=== PATIENT | male | born 1965 | race Two or more races ===

== ENCOUNTER 2021-11-25 10:14 | Emergency (ER) | payer MEDICAID, OTHER, SELFPAY ==
[2021-11-25 10:25] VITALS: BP 130/80; BP 134/79; PULSE 65; PULSE 88; RESP 16; TEMP 36.6; O2SAT 99; BMI 35.6
--- NOTE | 2021-11-25 10:28 | ED.WOUNDLAC ---
HPI - Wound/Laceration General Chief Complaint: Wound/Laceration Stated Complaint: rectal injury Time Seen by Provider: 11/25/21 10:24 Source: patient Mode of arrival: ambulatory Limitations: no limitations History of Present Illness HPI narrative: 56-year-old male with history of diabetes, high blood pressure, high cholesterol here with reports of laceration to the rectal area. Patient tells me he was in the shower this morning and he slipped striking his rectal area on the faucet. Patient had a tetanus this year. He is not on any anticoagulation Related Data Previous Rx's Medication Instructions Recorded amoxicillin 875 mg-potassium 1 tab PO BID #14 tabs 11/25/21 clavulanate 125 mg tablet docusate sodium 100 mg capsule 100 mg PO BID #60 caps 11/25/21 (Colace) oxycodone 5 mg tablet 5 mg PO Q8H PRN pain #8 tabs 11/25/21 Allergies Allergy/AdvReac Type Severity Reaction Status Date / Time No Known Allergies Allergy Unverified 01/08/20 18:08 [No Known Allergies*] Review of Systems Review of Systems: Yes all other systems are reviewed and are negative Constitutional: Constitutional: Reports no additional constitutional complaints, Denies body ache(s), Denies chills, Denies fever(s), Denies headache(s) and Denies weakness Eyes: Eyes: Reports no additional eye complaints and Denies change in vision ENT: Reports system reviewed and no additional complaints, except as documented, Denies dizziness, Denies headache(s), Denies nasal congestion, Denies nasal discharge and Denies neck pain Cardiovascular: Cardiovascular: Reports no additional cardiovascular complaints, Denies chest pain, Denies leg edema and Denies dyspnea Respiratory: Respiratory: Reports no additional respiratory complaints, Denies cough and Denies dyspnea Gastrointestinal: Gastrointestinal: Reports no additional gastrointestinal complaints, Denies abdominal pain, Denies diarrhea, Denies nausea and Denies vomiting Genitourinary: Genitourinary: Denies urinary incontinence Musculoskeletal: Musculoskeletal: Reports no additional musculoskeletal complaints, Denies back pain, Denies arthralgias, Denies joint swelling, Denies neck pain, Denies numbness and Denies tingling Integumentary/Breasts: Skin/Breast: Reports system reviewed and no additional complaints, except as docu and Denies rash Comments: +laceration Neurologic: Reports system reviewed and no additional complaints, except as documented, Denies Abnormal speech present, Denies dizziness, Denies headache(s), Denies numbness, Denies tingling and Denies weakness PMFSH Past Medical History Attestation statement: The following information was validated with the patient. Source: old records reviewed and nursing notes reviewed Social History Social History Alcohol intake: never Patient Tobacco Use Status: Never used Tobacco Advance Directives: No Advance Directives Information Provided: Yes Physical Exam Vital Signs: Vital Signs: Last Vital Signs Temp 97.9 F 11/25/21 10:25 Pulse 88 11/25/21 10:25 Resp 16 11/25/21 10:25 BP 134/79 11/25/21 10:25 Pulse Ox 99 11/25/21 10:25 O2 Del Method 11/25/21 10:25 BMI result Body Mass Index 35.6 Const: General: cooperative, healthy appearing, comfortable and no acute distress Orientation/consciousness: patient oriented x3 Limitations: no limitations HEENT: Head: Yes normal to inspection Ears: hearing grossly normal bilaterally General nose exam: Normal external nose present Face and sinus: Yes normal facial exam Mouth: Normal oral and palatal mucosa present Throat: Yes posterior oropharynx normal Eyes: General: appearance normal, both eyes and all related structures Pupils: Equal, round and reactive pupils present Neck: Neck: Yes normal visual inspection Chest: Chest palpation & inspection: normal inspection of the chest Resp: Effort & Inspection: normal respiratory effort Auscultation: clear to auscultation bilaterally Cardio: Rate: regular rate Rhythm: regular rhythm Peripheral pulses: Peripheral pulses 2+ throughout GI: Other: Inspection: Yes normal to inspection Palpation (GI): Soft to palpation and nontender Auscultation: normal bowel sounds Back/Spine/Pelvis: Thoracic/Lumbar Spine: thoracic and lumbar spine normal to inspection Skin: General skin exam: no rashes or lesions noted Neuro: General: patient oriented x3, no focal motor deficits and normal sensation to monofilament Cranial nerves: Yes Equal, round and reactive pupils present Cognition (Neuro): normal cognition Speech: No Abnormal speech present Gait exam (Neuro): Normal gait present Motor exam (neuro): 5/5 motor strength present throughout Extrem: General: Yes normal to inspection Course Course Course Narrative: See procedure note by Dr. Ventura. Patient tolerated well. He will be discharged home with a course of Augmentin prophylactically and analgesia as well as a stool softener. He will follow up next week in the office of Dr. Ventura for suture removal. Reviewed worrisome signs and symptoms of when to return to the emergency department. Comfortable discharge home. Consultations Consultation #1: Dr. Ventura saw the patient the bedside. He will perform laceration repair at the bedside. MDM - Wound/Laceration MDM Narrative Medical decision making narrative: 56-year-old male with a laceration to the perianal area after a fall in the shower. Patient will need General surgery consultation, labs, analgesia/antibiotic. Differential Diagnosis Differential diagnosis: Likely laceration Medical Records Attestation: I reviewed the patient's medical records. Lab Data Attestation: I reviewed the patient's lab results. Result diagrams: 11/25/21 10:50 11/25/21 10:50 Labs: Lab Results 11/25/21 11/25/21 11/25/21 Range/Units 10:38 10:50 10:50 WBC 8.7 (4.8-10.8) X10*3/uL RBC 4.80 (4.60-5.80) X10*6/uL Hgb 12.8 L (14.0-18.0) g/dl Hct 40.0 L (42.0-52.0) % MCV 83.3 (80.0-98.0) fL MCH 26.7 L (27.0-33.0) pg MCHC 32.0 (31.0-36.0) g/dl RDW 13.2 (11.0-16.0) % Plt Count 242 (160-400) X10*3/uL MPV 10.4 (9.4-12.4) fL Immature Gran % (Auto) 0.3 (0.0-0.4) % Neut % (Auto) 70.3 (45-73) % Lymph % (Auto) 20.0 (20-40) % Mcculloch % (Auto) 6.5 (2-11) % Eos % (Auto) 2.4 (0-4) % Baso % (Auto) 0.5 (0-2) % Lymph # (Auto) 1.7 (1.2-4.9) X10*3/uL Mcculloch # (Auto) 0.6 (0.1-1.2) X10*3/uL Eos # (Auto) 0.2 (0.0-0.4) X10*3/uL Baso # (Auto) 0.0 (0.0-0.2) X10*3/uL Abs Immat Gran (auto) 0.03 (0.00-0.03) X10*3/uL Absolute Neuts (auto) 6.1 (2.0-8.3) x10*3/uL Absolute Nucleated RBC 0.000 (0.0-0.012) X10*3/uL Nucleated RBC % (auto) 0.0 (0.0-0.2) /100WBC PT 11.7 (10.0-13.1) SEC INR 1.0 (0.9-1.1) APTT 29.3 (26.0-36.4) SEC Sodium (135-145) mmol/L Potassium (3.3-5.1) mmol/L Chloride (96-108) mmol/L Carbon Dioxide (22-29) mmol/L Anion Gap (12-20) BUN (9-16) mg/dL Creatinine (0.5-1.4) mg/dL Estim Creat Clear Calc Estimated GFR Random Glucose (60-115) mg/dL Calcium (8.4-10.2) mg/dL Total Bilirubin (0.0-1.0) mg/dL Direct Bilirubin (0.0-0.5) mg/dL AST (5-37) U/L ALT (0-40) U/L Alkaline Phosphatase (39-117) U/L Total Protein (6.5-8.0) g/dL Albumin (3.5-5.0) g/dL COVID-19 (LEW) Negative (Negative) COVID-19 Clin Com See Note 11/25/21 Range/Units 10:50 WBC (4.8-10.8) X10*3/uL RBC (4.60-5.80) X10*6/uL Hgb (14.0-18.0) g/dl Hct (42.0-52.0) % MCV (80.0-98.0) fL MCH (27.0-33.0) pg MCHC (31.0-36.0) g/dl RDW (11.0-16.0) % Plt Count (160-400) X10*3/uL MPV (9.4-12.4) fL Immature Gran % (Auto) (0.0-0.4) % Neut % (Auto) (45-73) % Lymph % (Auto) (20-40) % Mcculloch % (Auto) (2-11) % Eos % (Auto) (0-4) % Baso % (Auto) (0-2) % Lymph # (Auto) (1.2-4.9) X10*3/uL Mcculloch # (Auto) (0.1-1.2) X10*3/uL Eos # (Auto) (0.0-0.4) X10*3/uL Baso # (Auto) (0.0-0.2) X10*3/uL Abs Immat Gran (auto) (0.00-0.03) X10*3/uL Absolute Neuts (auto) (2.0-8.3) x10*3/uL Absolute Nucleated RBC (0.0-0.012) X10*3/uL Nucleated RBC % (auto) (0.0-0.2) /100WBC PT (10.0-13.1) SEC INR (0.9-1.1) APTT (26.0-36.4) SEC Sodium 141 (135-145) mmol/L Potassium 4.5 (3.3-5.1) mmol/L Chloride 106 (96-108) mmol/L Carbon Dioxide 27 (22-29) mmol/L Anion Gap 13 (12-20) BUN 18 H (9-16) mg/dL Creatinine 0.83 (0.5-1.4) mg/dL Estim Creat Clear Calc 112.3 Estimated GFR > 60 Random Glucose 112 (60-115) mg/dL Calcium 8.8 (8.4-10.2) mg/dL Total Bilirubin 0.4 (0.0-1.0) mg/dL Direct Bilirubin 0.2 (0.0-0.5) mg/dL AST 19 (5-37) U/L ALT 27 (0-40) U/L Alkaline Phosphatase 46 (39-117) U/L Total Protein 6.5 (6.5-8.0) g/dL Albumin 4.3 (3.5-5.0) g/dL COVID-19 (LEW) (Negative) COVID-19 Clin Com Discharge Plan Discharge Clinical Impression: Laceration Patient Disposition: Home, Self-Care Instructions: Laceration (ED) Additional Instructions: Keep the area clean, wash off after having bowel movement Follow-up with Dr Ventura in office next week Prescriptions: New amoxicillin-pot clavulanate 875-125 mg tablet 1 tab PO BID Qty: 14 0RF docusate sodium [Colace] 100 mg capsule 100 mg PO BID Qty: 60 0RF oxycodone 5 mg tablet 5 mg PO Q8H PRN (Reason: pain) Qty: 8 0RF Rx Instructions: Partial Fill upon patient request. Referrals: Robbie Ventura MD [Physician] - Interventions: ED Discharge Assessment Last Done: 11/25/21 12:26 Discharge Date/Time: 11/25/21 12:27
[2021-11-25 10:57] LABS: MANUAL DIFF FLAG NO
[2021-11-25 10:58] LABS: Basophils Percent Auto 0.5 % (0-2); Eosinophils Absolute Auto 0.2 X10*3/uL (0.0-0.4); Eosinophils Percent Auto 2.4 % (0-4); Hemoglobin 12.8 g/dl (14.0-18.0); Imm Gran Abs Auto 0.03 X10*3/uL (0.00-0.03); Imm Gran Pct Auto 0.3 % (0.0-0.4); Lymphocytes Absolute Auto 1.7 X10*3/uL (1.2-4.9); Mean Corpuscular Hemoglobin 26.7 pg (27.0-33.0); Mean Corpuscular Volume 83.3 fL (80.0-98.0); Mean Platelet Volume 10.4 fL (9.4-12.4); Monocytes Absolute Auto 0.6 X10*3/uL (0.1-1.2); Monocytes Percent Auto 6.5 % (2-11); Neutrophils Absolute Auto 6.1 x10*3/uL (2.0-8.3); Neutrophils Percent Auto 70.3 % (45-73); Platelet Count 242 X10*3/uL (160-400); Red Cell Distribution Width 13.2 % (11.0-16.0); White Blood Count 8.7 X10*3/uL (4.8-10.8)
[2021-11-25 11:03] LABS: Prothrombin Time 11.7 SEC (10.0-13.1)
[2021-11-25 11:05] LABS: Partial Thromboplastin Time 29.3 SEC (26.0-36.4)
[2021-11-25] MEDS: ondansetron HCL 4 MG/2 ML VIAL IVPUSH (11:11)
[2021-11-25] MEDS: Lactated Ringers 1,000 ML 999 ML IV (11:11)
[2021-11-25] MEDS: Morphine Sulfate 4 MG/ML CARTRIDGE IVPUSH (11:11)
[2021-11-25] MEDS: Lidocaine HCl 2% PF/Epi 1:200 20 ML VIAL INFILTRATI (11:12)
[2021-11-25 11:14] LABS: COVID-19 Test Negative (Negative); IDNOW Serial# 16C4AD1C
[2021-11-25 11:17] LABS: Alanine Aminotransferase 27 U/L (0-40); Albumin Level 4.3 g/dL (3.5-5.0); Alkaline Phosphatase 46 U/L (39-117); Anion Gap 13 (12-20); Aspartate Amino Transferase 19 U/L (5-37); Bilirubin Direct 0.2 mg/dL (0.0-0.5); Bilirubin Total 0.4 mg/dL (0.0-1.0); Blood Urea Nitrogen 18 mg/dL (9-16); Calcium 8.8 mg/dL (8.4-10.2); Carbon Dioxide 27 mmol/L (22-29); Chloride 106 mmol/L (96-108); Creatinine Clr Calc Pharmacy 112.3; Estimated Glomerular Filt Rate > 60; Glucose Random 112 mg/dL (60-115); Potassium 4.5 mmol/L (3.3-5.1); Sodium 141 mmol/L (135-145); Total Protein 6.5 g/dL (6.5-8.0)
--- NOTE | 2021-11-25 12:19 | P.OP_ITS ---
Operative Note Operative Note Date of Service: 11/25/21 Narrative: Preoperative diagnosis: Perianal laceration Postoperative diagnosis: Same Procedure: Repair of perianal laceration Surgeon: Robbie Ventura MD Ceramics Instructor: none Anesthesia: Local lidocaine 1% with epinephrine Indications for procedure: 56-year-old male patient status post fall in the shower this morning resulting in a large laceration of the perianal skin. Operative findings: Laceration measuring approximately 10 cm in length identified with a stellate appearance. Intact anal sphincter is noted. Specimen: None Estimated blood loss: None Complications: None Procedure details: Patient was placed in a prone position. The site of surgery was confirmed by the patient. After assuring informed consent the skin was prepped with Betadine and draped in a sterile fashion. Local anesthesia consist ing of 1% lidocaine with epinephrine was then infiltrated surrounding the laceration. The wounds were further cleansed using Betadine. Wounds were then loosely reapproximated using interrupted 3-0 nylon sutures. Sterile dressings were then applied. The patient tolerated the procedure well. He was discharged to home in stable condition.
--- NOTE | 2021-11-25 12:19 | PM.CNGS ---
History of Present Illness Consult details Consult date: 11/25/21 Requesting physician: Shaniqua Fernando Narrative: 56-year-old male patient presenting to the emergency department after slipping in the shower resulting in a laceration to the perirectal skin after striking the faucet. He was found to have a large laceration but denies significant pain or bleeding. His past history is significant for diabetes, hypertension, hypercholesterolemia. He denies associated injuries. Surgical consultation is requested for repair of this complex laceration. Review of Systems Review of Systems: Yes all other systems are reviewed and are negative Integumentary/Breasts: Skin/Breast: Reports as per [facility] Social History Social History Alcohol intake: never Patient Tobacco Use Status: Never used Tobacco Advance Directives: No Advance Directives Information Provided: Yes Meds Allergies Allergy/AdvReac Type Severity Reaction Status Date / Time No Known Allergies Allergy Unverified 01/08/20 18:08 [No Known Allergies*] Physical Exam Vital Signs: Vital Signs: Last Vital Signs Temp 97.9 F 11/25/21 10:25 Pulse 88 11/25/21 10:25 Resp 16 11/25/21 10:25 BP 134/79 11/25/21 10:25 Pulse Ox 99 11/25/21 10:25 O2 Del Method 11/25/21 10:25 BMI result Body Mass Index 35.6 Const: General: comfortable and no acute distress Nutritional Appearance: well nourished Orientation/consciousness: patient oriented x3 Limitations: no limitations HEENT: Head: Yes normocephalic and Yes atraumatic Ears: hearing grossly normal bilaterally Resp: Effort & Inspection: normal respiratory effort, no audible wheezes, no cough and no respiratory distress Auscultation: clear to auscultation bilaterally Cardio: Rate: regular rate Rhythm: regular rhythm GI: Other: Rectal examination reveals intact anal sphincter with normal sphincter function. A large laceration is noted extending to the right lateral wall extending into the subcutaneous tissue. Anal derm is intact. Palpation (GI): Soft to palpation, nontender, no guarding and not rigid Skin: Other: Laceration as noted above Neuro: General: patient oriented x3 Extrem: General: Yes no clubbing, cyanosis or edema Results Labs Result diagrams: 11/25/21 10:50 11/25/21 10:50 Labs: Abnormal lab results 11/25/21 11/25/21 Range/Units 10:50 10:50 Hgb 12.8 L (14.0-18.0) g/dl Hct 40.0 L (42.0-52.0) % MCH 26.7 L (27.0-33.0) pg BUN 18 H (9-16) mg/dL Short CBC 11/25/21 Range/Units 10:50 WBC 8.7 (4.8-10.8) X10*3/uL Hgb 12.8 L (14.0-18.0) g/dl Hct 40.0 L (42.0-52.0) % Plt Count 242 (160-400) X10*3/uL BMP 11/25/21 10:50 Sodium 141 Potassium 4.5 Chloride 106 Carbon Dioxide 27 BUN 18 H Creatinine 0.83 Calcium 8.8 Liver Function 11/25/21 Range/Units 10:50 Total Bilirubin 0.4 (0.0-1.0) mg/dL Direct Bilirubin 0.2 (0.0-0.5) mg/dL AST 19 (5-37) U/L ALT 27 (0-40) U/L Alkaline Phosphatase 46 (39-117) U/L Albumin 4.3 (3.5-5.0) g/dL All other labs normal. Assessment and Plan (1) Laceration: Status: Acute Plan 56-year-old male patient status post fall in shower resulting in a laceration to the perianal skin. A large complex laceration is identified but the sphincter but muscles appear to be intact. I recommended loosely closing the wounds to reapproximate skin edges. After discussion of the procedure, risks, and alternatives, he consents to the procedure. This will be performed at the bedside. Procedure was performed the patient tolerated the procedure well. I recommended warm soaks 3-4 times daily followed by dry sterile dressings to the wound. He may benefit from a stool softener as well. He should return to the office in approximately 1 week for wound examination and possible suture removal. He expressed understanding and agrees with the plan. Procedures Date of Service Date of Service: 11/25/21
== END 2021-11-25 12:27 | disposition home or self-care (01) ==
PROVIDERS: Emergency Provider Emergency Medicine; PCP Family Medicine
DX: S36.63XA Laceration of rectum, initial encounter (principal); W26.9XXA Contact with unspecified sharp object(s), initial encounter; Y93.E1 Activity, personal bathing and showering; Y92.002 Bathroom of unspecified non-institutional (private) residence as the place of occurrence of the external cause; Y99.9 Unspecified external cause status; Z20.822 Contact with and (suspected) exposure to COVID-19; Z79.899 Other long term (current) drug therapy
CPT/HCPCS: 12001; 80048; 80076; 85025; 85610; 85730; 87635; 96374; 96375; 99284; J0690; J2270; J2405

== ENCOUNTER → 2021-12-02 08:43 | Outpatient (BNVA) | payer MEDICAID, OTHER, SELFPAY | PROVIDERS: PCP Family Medicine; Referring Provider Family Medicine; Visit Provider Surgery | DX: S31.831D Laceration without foreign body of anus, subsequent encounter (principal) | CPT/HCPCS: 99212 ==

== ENCOUNTER → 2021-12-13 13:51 | Outpatient (BNVA) | payer MEDICAID, OTHER, SELFPAY | PROVIDERS: PCP Family Medicine; Visit Provider Surgery | DX: Z48.817 Encounter for surgical aftercare following surgery on the skin and subcutaneous tissue (principal); Z87.2 Personal history of diseases of the skin and subcutaneous tissue | CPT/HCPCS: 99212 ==

== ENCOUNTER 2022-06-19 09:20 | Outpatient (REF) | payer MEDICAID, OTHER, SELFPAY ==
--- NOTE | ~2022-06-19 | XR_ITS ---
EXAMINATION: XR SHOULDER, LEFT CLINICAL INFORMATION: Chronic left shoulder pain. COMPARISON: Chest radiograph 06/17/2015. TECHNIQUE: Left shoulder is imaged in 4 views. FINDINGS: No fracture or dislocation or destructive process. The glenohumeral appears normal. The acromioclavicular alignment is normal. There are no visible rotator cuff calcifications. XR/XR shoulder LT min 2V IMPRESSION: Normal left shoulder.
== END 2022-06-19 09:21 | disposition home or self-care (01) ==
LOC: HO.XRAY 09:20
PROVIDERS: PCP Family Medicine; Visit Provider Family Medicine
DX: M25.512 Pain in left shoulder (principal)
CPT/HCPCS: 73030

== ENCOUNTER 2022-10-12 08:54 | Outpatient (REF) | payer OTHER, SELFPAY ==
--- NOTE | 2022-10-12 08:55 | EMG_ITS ---
FINDINGS: Bilateral median and ulnar motor and sensory studies were performed. Bilateral radial sensory studies were performed. Paraspinal muscles were tested with a needle. IMPRESSION: 1. [id number] bilateral median neuropathy across carpal tunnel. 2. Mild right ulnar neuropathy across cubital tunnel. 3. Left Germán-Quinn anastomosis, normal variant. MD MEG Mireles/TATO / [id number]
== END 2022-10-12 08:55 | disposition home or self-care (01) ==
LOC: HO.NEURO 08:54
PROVIDERS: PCP Family Medicine; Visit Provider Family Medicine
DX: R20.2 Paresthesia of skin (principal); R20.0 Anesthesia of skin
CPT/HCPCS: 95886; 95911

== ENCOUNTER 2023-05-28 13:01 | Outpatient (REF) | payer OTHER, SELFPAY ==
[2023-05-28 17:30] LABS: Prostate Specific Antigen Scr 1.53 ng/mL (<0.05-4.0)
== END 2023-05-28 13:02 | disposition home or self-care (01) ==
LOC: HO.HHCL 13:01
PROVIDERS: Visit Provider Family Medicine
DX: Z12.5 Encounter for screening for malignant neoplasm of prostate (principal)
CPT/HCPCS: 36415; 84153

== ENCOUNTER 2023-08-31 08:35 | Outpatient (REF) | payer MEDICAID, OTHER, SELFPAY ==
[2023-08-31 11:34] LABS: MANUAL DIFF FLAG NO
[2023-08-31 11:43] LABS: Basophils Absolute Auto 0.1 X10*3/uL (0.0-0.2); Basophils Percent Auto 0.8 % (0-2); Eosinophils Absolute Auto 0.2 X10*3/uL (0.0-0.4); Eosinophils Percent Auto 3.7 % (0-4); Hematocrit 42.2 % (42.0-52.0); Hemoglobin 13.5 g/dl (14.0-18.0); Imm Gran Abs Auto 0.01 X10*3/uL (0.00-0.03); Imm Gran Pct Auto 0.2 % (0.0-0.4); Lymphocytes Absolute Auto 2.4 X10*3/uL (1.2-4.9); Mean Corpuscular Hemoglobin 26.6 pg (27.0-33.0); Mean Corpuscular Volume 83.2 fL (80.0-98.0); Mean Platelet Volume 10.8 fL (9.4-12.4); Monocytes Absolute Auto 0.4 X10*3/uL (0.1-1.2); Monocytes Percent Auto 6.1 % (2-11); Neutrophils Absolute Auto 2.8 x10*3/uL (2.0-8.3); Neutrophils Percent Auto 48.2 % (45-73); Platelet Count 252 X10*3/uL (160-400); Red Blood Count 5.07 X10*6/uL (4.60-5.80); Red Cell Distribution Width 13.4 % (11.0-16.0); White Blood Count 5.9 X10*3/uL (4.8-10.8)
[2023-08-31 12:27] LABS: Alanine Aminotransferase 22 U/L (0-40); Albumin Level 4.2 g/dL (3.5-5.0); Alkaline Phosphatase 51 U/L (39-117); Anion Gap 12 (12-20); Aspartate Amino Transferase 19 U/L (5-37); Bilirubin Total 0.3 mg/dL (0.0-1.0); Blood Urea Nitrogen 10 mg/dL (9-16); Calcium 9.2 mg/dL (8.4-10.2); Carbon Dioxide 24 mmol/L (22-29); Chloride 107 mmol/L (96-108); Cholesterol 125 mg/dL (<200); Estimated Glomerular Filt Rate > 60; Glucose Random 124 mg/dL (60-115); HDL Cholesterol 45 mg/dL (>40); LDL Cholesterol Calculated 68 mg/dL (<100); Potassium 4.4 mmol/L (3.3-5.1); Sodium 139 mmol/L (135-145); Total Protein 6.8 g/dL (6.5-8.0); Triglycerides 64 mg/dL (<150)
[2023-08-31 12:32] LABS: TSH reflex Free T4 4.74 uIU/mL (0.32-4.0)
[2023-08-31 12:54] LABS: Vitamin B12 286 pg/mL (200-900)
[2023-08-31 13:09] LABS: Free T4 (Free Thyroxine) 0.94 ng/dL (0.71-1.85)
== END 2023-08-31 08:36 | disposition home or self-care (01) ==
LOC: HO.HHCL 08:35
PROVIDERS: Visit Provider Family Medicine
DX: E11.9 Type 2 diabetes mellitus without complications (principal)
CPT/HCPCS: 36415; 80053; 80061; 82607; 82746; 84439; 84443; 85025

== ENCOUNTER 2023-11-05 11:48 | Outpatient (REF) | payer MEDICAID, OTHER, SELFPAY ==
[2023-11-05 14:01] LABS: Free T4 (Free Thyroxine) 0.91 ng/dL (0.71-1.85); TSH reflex Free T4 4.62 uIU/mL (0.32-4.0)
== END 2023-11-05 11:49 | disposition home or self-care (01) ==
LOC: HO.HHCL 11:48
PROVIDERS: Visit Provider Family Medicine
DX: R79.89 Other specified abnormal findings of blood chemistry (principal)
CPT/HCPCS: 36415; 84439; 84443

== ENCOUNTER 2024-01-29 09:20 | Outpatient (REF) | payer MEDICAID, OTHER, SELFPAY ==
[2024-01-29 14:55] LABS: PSA,Total (Free>4and<10) 1.88 ng/mL (0.00-4.00)
[2024-01-29 14:57] LABS: TSH reflex Free T4 3.82 uIU/mL (0.32-4.0)
[2024-01-30 21:39] LABS: Thyroid Peroxidase Antibodies 3 IU/mL (<9)
[2024-02-01 19:38] LABS: Thyroid Stimulating Immunoglob <89 % baseline (<140)
[2024-02-02 19:04] LABS: Thyrotropin Receptor Antibody <1.00 IU/L (<=2.00)
== END 2024-01-29 09:21 | disposition home or self-care (01) ==
LOC: HO.CHCLDS 09:20
PROVIDERS: Visit Provider Family Medicine
DX: R79.89 Other specified abnormal findings of blood chemistry (principal); Z12.5 Encounter for screening for malignant neoplasm of prostate
CPT/HCPCS: 36415; 83520; 84153; 84443; 84445; 86376

== ENCOUNTER 2024-05-05 08:49 | Outpatient (REF) | payer MEDICAID, OTHER, SELFPAY ==
[2024-05-06 17:49] LABS: Rubeola IgG (Measles) >300.00 AU/mL
[2024-05-08 10:22] LABS: TS Negative Control Passed; TS Panel A 0; TS Panel B 0; TS Positive Control Passed; TSpotTB Negative (Negative)
== END 2024-05-05 08:50 | disposition home or self-care (01) ==
LOC: HO.CHCLDS 08:49
PROVIDERS: Visit Provider Internal Medicine
DX: Z02.6 Encounter for examination for insurance purposes (principal)
CPT/HCPCS: 36415; 86382; 86481; 86735; 86762; 86765

== ENCOUNTER 2024-12-11 11:10 | Outpatient (REF) | payer MEDICAID, OTHER, SELFPAY ==
--- OUTSIDE RECORDS SUMMARY | 2024-12-11 12:52 | XMS_ITS | Clinical Summary ---
Author Organization [facility] Address [address] [place] [address] Care Team Providers Care Documentation Designer Name Role Phone [place], [facility] Primary Care Provider Allergies No known active allergies Medications ASPIRIN ORAL 81 mg once a day. Active polyethylene glycol (GoLYTELY) solutionIndicat ions:Screen for colon cancer Take according to instructions provided by physician. 4000 mL 2 Active Trulicity 3 mg/0.5 mL injection dose Inject 3 mg under the skin once a week. 2 Active famotidine (PEPCID) 20 mg tablet Take 20 mg by mouth 2 times a day. 2 Active metFORMIN (GLUCOPHAGE) 1,000 mg tablet 2 times a day. 2 Active lisinopriL (PRINIVIL,ZESTR IL) 30 mg tablet Take 30 mg by mouth once a day. 2 Active senna 8.6 mg tablet Take 2 tablets by mouth daily as needed. 2 Active simvastatin (ZOCOR) 20 mg tablet SMARTSI Tablet(s) By Mouth Every Evening 2 Active Active Problems Problem Noted Date Diagnosed Date Subcutaneous mass of back 10/31/2021 Assessment & Plan (10/31/2021 9:37 AM EDT): Won has developed a 1.5 cm subcutaneous mass in his posterior right shoulder that is been there for about 3 to 5 years that has not grown in size it is not painful unless he presses directly on it. There is no indication for surgical removal at this time. If it grows very fast or grows very large or becomes very painful with activities of daily living this may be more of an indication for surgical excision however at this time we would recommend watchful waiting. He is in agreement with this plan and all of his questions have been answered today. This was discussed with Dr. Agosto and he is in agreement. He is always welcome to come back at any time. Thank you for allowing us to participate in his care. Diabetes mellitus type 2 without retinopathy Family History Medical History Relation Name Comments Other Mother Family History of diabetes mellitus Relation Name Status Comments Mother Social History Tobacco Use Types Packs/Day Years Used Date Smoking Tobacco: Former Smokeless Tobacco: Never Tobacco Cessation:Counseling Given: Not Answered Comments:Quit 10 years ago Alcohol Use Standard Drinks/Week Comments Not Currently 1 (1 standard drink = 0.6 oz pure alcohol) 1-2 shots every couple of weeks Sex and Gender Information Value Date Recorded Sex Assigned at Not on file Legal Sex Male 6:55 PM EDT Gender Identity Not on file Sexual Orientation Not on file Last Filed Vital Signs Vital Sign Reading Time Taken Comments Blood Pressure 131/77 07/18/2022 8:51 AM EDT Pulse 76 07/18/2022 8:15 AM EDT Temperature 36.1 C (97 F) 07/18/2022 7:36 AM EDT Respiratory Rate 11 07/18/2022 8:51 AM EDT Oxygen Saturation 100% 07/18/2022 8:51 AM EDT Inhaled Oxygen Concentration - - Weight 99.8 kg (220 lb) 07/18/2022 7:36 AM EDT Height 167.6 cm (5' 6 ) 07/18/2022 7:36 AM EDT Body Mass Index 35.51 07/18/2022 7:36 AM EDT Plan of Treatment Health Maintenance Due Date Last Done Comments Cologuard 1965 FOBT / Fit Test 1965 HIV Screening 1965 Hepatitis C Screening 1965 Sigmoidoscopy 1965 Ophthalmology Exam 1974 Pneumococcal Vaccine: 50+ Ye ars (2 of 2 - PCV) 10/09/2007 10/08/2006 CT Lung Cancer Screening (Baseline) 2014 Hemoglobin A1C 12/03/2022 06/05/2022 Basic Metabolic Panel 06/06/2023 06/06/2022, 020 Urine Microalbumin 06/06/2023 06/06/2022, 10/14/2019 COVID-19 Vaccine (2023-05 5 season) 2023 10/02/2021, 02/13/2021, 08/09/2020, Additional history exists Alcohol/Substance Use Screening 04/23/2024 Depression Screening and Follow-Up 04/23/2024 Social Drivers of Health Valentina ual Screening 04/23/2024 Influenza Vaccine (#1) 2024 , 02/15/2021, 01/29/2020, Additional history exists DTaP,Tdap,and Td Vaccines (4 - Td or Tdap) 11/22/2031 11/21/2021, 01/14/2018, 02/06/2011 Colon Cancer Screening 07/18/2032 Colonoscopy 07/18/2032 07/18/2022, 02/27/2022 RSV Vaccine (60+ years old a nd patients) (1 - 1-dose 75+ series) 2039 Hepatitis B Vaccines Completed 01/17/2021, 11/09/2020, 09/27/2020, Additional history exists Zoster Vaccines Completed 02/28/2021, 12/29/2020 Procedures * Due to [place] [employer] law, this organization might not be sharing negative HIV tests. Procedure Name Priority Date/Time Associated Diagnosis Comments COLONOSCOPY 07/18/2022 from Last 3 Months or Most Recently Relevant to Health Maintenance Results * Due to [place] [employer] law, this organization might not be sharing negative HIV tests. * COLONOSCOPY (07/18/2022) Narrative Procedure Note Quang Schwartz MD - 07/18/2022 7:09 AM EDT [facility] Patient Name: Kyle Flores Procedure Date: 07/18/2022 7:09 AM Date of : 1965 Admit Type: Outpatient Age: 57 Room: [facility] Gender: Male Note Status: Finalized Attending MD: Quang Schwartz , Procedure: Colonoscopy Indications: High risk colon cancer surveillance: Personal history of colonicpolyps Comorbidities Providers: Quang Schwartz Referring MD: Requesting Provider: Medicines: Midazolam 3 mg IV, Fentanyl 125 micrograms IV Complications: No immediate complications. Estimated Blood Loss: Estimated blood loss: none. Procedure: Pre-Anesthesia Assessment: - Prior to the procedure, a History and Physicalwas performed, and patient medications, allergies and sensitivities were reviewed. The patient'stolerance of previous anesthesia was reviewed. - The risks and benefits of the procedure and the sedation options and risks were discussed with the patient. All questions were answered and informed consent was obtained. - Patient identification and proposed procedurewere verified prior to the procedure by the physician,the nurse and the trace evidence technician. The procedure wasverified in the pre-procedure area in the procedure room. After I obtained informed consent, the scope was passed under direct vision. Throughout theprocedure, the patient's blood pressure, pulse, and oxygen saturations were monitored continuously. The Colonoscope was introduced through the anus and advanced to the cecum, identified by appendiceal orifice and ileocecal valve. The colonoscopy was performed without difficulty. The patient tolerated the procedure well. The quality of the bowel preparation was adequate. Findings: A 8 mm polyp was found in the ascending colon. The polyp was sessile. The polyp was removed with a cold snare. Resection and retrieval were complete. A 10 mm polyp was found in the sigmoid colon. The polyp was semi-pedunculated. The polyp was removed with a hot snare. Resectionand retrieval were complete. A 2 mm polyp was found in the rectum. The polyp was sessile. Thepolyp was removed with a cold snare. Resection and retrieval werecomplete. Many diverticula were found in the sigmoid colon. Internal hemorrhoids were found during retroflexion. The hemorrhoids were small. The perianal and digital rectal examinations were normal. Impression: - One 8 mm polyp in the ascending colon, removedwith a cold snare. Resected and retrieved. - One 10 mm polyp in the sigmoid colon, removedwith a hot snare. Resected and retrieved. - One 2 mm polyp in the rectum, removed with a cold snare. Resected and retrieved. - Diverticulosis in the sigmoid colon. - Internal hemorrhoids. Recommendation: - Discharge patient to home. - Advance diet as tolerated. - Continue present medications. - Await pathology results. - Repeat colonoscopy in 3 years for surveillance. - ONLY CLEARS DIET(NO SOLID FOOD) THE DAY BEFORE FUTURE COLONOSCOPIES. Quang Schwartz, 07/18/2022 8:29:19 AM Number of Addenda: 0 Note Initiated On: 07/18/2022 7:09 AM Quang Schwartz MD PROVATION PROCEDURES Final Resu lt from Last 3 Months or Most Recently Relevant to Health Maintenance Insurance [facility] [id number] HSNO/FREE CARE Care Teams Documentation Designer Relationship Specialty Start Date End Date [facility] [address] [place] [id number] PCP - General 12/09/20
--- OUTSIDE RECORDS SUMMARY | 2024-12-11 12:52 | XMS_ITS | Encounter Summary ---
Author Organization [facility] Address [address] [place] [address] Care Team Providers Care Application Support Name Role Phone Jailene Chu MD Primary Care Provider [phone] Encounter Details Date Type Department Care Team (Latest Contact Info) Description 05/20/2018 Abstract [facility] Dental, Provider, DDS Social History Tobacco Use Types Packs/Day Years Used Date Smoking Tobacco: Never Assessed Sex and Gender Information Value Date Recorded Sex Assigned at Male 02/20/2022 10:18 AM EDT Legal Sex Male 10:18 AM EDT Gender Identity Male 02/20/2022 10:18 AM EDT Sexual Orientation Straight 12/11/2024 10 :36 AM EDT documented as of this encounter Plan of Treatment Upcoming Encounters Date Type Department Care Team (Late st Contact Info) Description 03/03/2025 11:00 AM EST Office Visit [facility] [address] [place] [address] Dee Thompson LLD [address] [place] [address] documented as of this encounter Visit Diagnoses Not on filedocumented in this encounter Care Teams Application Support Relationship Specialty Start Date End Date Jailene Chu MD [address] [place] [address] PCP - General Family Medicine 02/01/21 documented as of this encounter
--- OUTSIDE RECORDS SUMMARY | 2024-12-11 12:53 | XMS_ITS | Encounter Summary ---
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, unspecified whether extermination inspector insulin use Social History Tobacco Use Types Packs/Day Years Used Date Smoking Tobacco: Never Assessed Sex and Gender Information Value Date Recorded Sex Assigned at Not on file Legal Sex Male 9:42 PM EDT Gender Identity Not on file Sexual Orientation Not on file documented as of this encounter Plan of Treatment Not on file documented as of this encounter Results * Measles antibody, IgG (10/14/2019 9:46 AM EDT) RUBEOLA IGG Positive Positive [facility] Blood (Blood) 10/14/2019 9:4 6 AM EDT 10/14/2019 9:53 AM EDT us Tu Yun CLIN ASST NON CULTURE MICROBIOL OGY Final Result [facility] [address] [place] [address] * Rubella antibody, IgG (10/14/2019 9:46 AM EDT) Rubella Ab, IgG Positive Positive [facility] Blood (Blood) 10/14/2019 9:4 6 AM EDT 10/14/2019 9:53 AM EDT us Tu Yun CLIN ASST NON CULTURE MICROBIOL OGY Final Result Performing Organization Address [facility]/ZIP Co de Phone Number [address] [address] * Mumps antibody, IgG (10/14/2019 9:46 AM EDT) MUMPS IGG AB Positive Positive [facility] Blood (Blood) 10/14/2019 9:4 6 AM EDT 10/14/2019 9:53 AM EDT us Tu Yun NP NON CULTURE MICROBIOL OGY Final Result Performing Organization Address [facility] Co de Phone Number [address] [address] * Microalbumin/creatinine ratio, random urine (10/14/2019 9:46 AM EDT) URINE MICROALBUMIN <1.2 0 - 2.3 mg/dL [facility] URINE CREATININE 189 mg/dL [facility] MICROALB/CRE RATIO NOT CALCULATED 0 - 20 mg/g Cre [facility] Comment:due to Microalbumin <1.2 Urine (Urine) 10/14/2019 9:4 6 AM EDT 10/14/2019 9:53 AM EDT us Tu Yun CLIN [facility] URINE ORDERABLES Shannan l Result Performing Organization Address [facility]/ZIP Co de Phone Number [address] [address] * Hepatitis B surface antibody (10/14/2019 9:46 AM EDT) HBV SURFACE ANTIBODY Negative [facility] Comment: Unvaccinated: Negative Vaccinated: Positive Blood 10/14/2019 9:46 AM EDT 10/14/2019 9:53 AM EDT Tu Yun CLIN [facility] LAB BLOOD ORDERABLES Final Result Performing Organization Address City/[facility]/ZIP Co de Phone Number [address] [address] * (ABNORMAL) Hemoglobin A1c (10/14/2019 9:46 AM EDT) HEMOGLOBIN A1C 7.7(H) 4.3 - 5.8 % [facility] Blood 10/14/2019 9:46 AM EDT 10/14/2019 9:53 AM EDT Tu Yun NP LAB BLOOD ORDERABLES Final Result Performing Organization Address City/[facility] Co de Phone Number [address] [address] * (ABNORMAL) Comprehensive metabolic panel (10/14/2019 9:46 AM EDT) SODIUM 140 133 - 146 mmol/L [facility] POTASSIUM 4.6 3.3 - 5.1 mmol/L [facility] CHLORIDE 104 96 - 108 mmol/L [facility] CO2 26 21 - 35 mmol/L [facility] BUN 20(H) 6 - 19 mg/dL [facility] CREATININE 0.70 0.5 - 1.5 mg/dL [facility] GLUCOSE 111(H) 70 - 99 mg/dL [facility] ALBUMIN 4.4 3.9 - 4.8 g/dL [facility] TOTAL PROTEIN 6.7 6.5 - 8.0 g/dL [facility] CALCIUM 8.5 8.4 - 10.3 mg/dL [facility] ALKALINE PHOSPHATASE 49 39 - 117 U/L [facility] TOTAL BILIRUBIN 0.2 0.0 - 1.2 mg/dL [facility] AST 19 0 - 37 U/L [facility] ALT 16 0 - 40 U/L [facility] GLOBULIN 2.3 1 - 4.8 g/dL [facility] EGFR 106 >59 mL/min/1.7 3m2 [facility] Comment:Estimated glomerular filtration rate calculated using the CKD-EPI equation. ANION GAP 15 10 - 20 mmol/L [facility] Blood 10/14/2019 9:46 AM EDT 10/14/2019 9:53 AM EDT Tu Yun CLIN [facility] LAB BLOOD ORDERABLES Final Result Performing Organization Address [facility]/ZIP Co de Phone Number [address] [phone] * (ABNORMAL) Lipid panel (10/14/2019 9:46 AM EDT) HDL 45 mg/dL [facility] Comment: Interpretation <40 mg/dL: Low HDL cholesterol (major risk factor for CHD) Greater than or equal to 60 mg/dL: High HDL cholesterol ( negative risk factor for CHD) HDL - cholesterol is affected by a number of factors, e.g. smoking, excerise, hormones, sex and age. CHOLESTEROL 115 0 - 240 mg/dL [facility] TRIGLYCERIDES 83 30 - 160 mg/dL [facility] LDL 53 50 - 129 mg/dL [facility] Comment: LDL levels in terms of risk for coronary heart disease: <100 mg/dL: Optimal 100-129 mg/dL: Near or above optimal 130-159 mg/dL: Borderline high 160-189 mg/dL: High >190 mg/dL: Very High CARDIAC RISK RATIO 2.6(L) 3.4 - 5.0 [facility] Blood 10/14/2019 9:46 AM EDT 10/14/2019 9:53 AM EDT Tu Yun CLIN AS[facility] LAB BLOOD ORDERABLES Final Result Performing Organization Address City/[facility]/ZIP Co de Phone Number [address] [phone] documented in this encounter Visit Diagnoses Diagnosis Hyperlipidemia, unspecified hyperlipidemia type- Primary Annual physical exam Routine general medical examination at a health care facility 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 It is not the complete legal health record.[facility]
[2024-12-11 14:31] LABS: MANUAL DIFF FLAG NO
[2024-12-11 14:38] LABS: Hematocrit 44.0 % (42.0-52.0); Hemoglobin 14.0 g/dl (14.0-18.0); Imm Gran Abs Auto 0.01 X10*3/uL (0.00-0.03); Imm Gran Pct Auto 0.2 % (0.0-0.4); Lymphocytes Absolute Auto 2.7 X10*3/uL (1.2-4.9); Mean Corpuscular HGB Conc 31.8 g/dl (31.0-36.0); Mean Corpuscular Hemoglobin 26.7 pg (27.0-33.0); Mean Corpuscular Volume 83.8 fL (80.0-98.0); NRBC Abs Auto 0.000 X10*3/uL (0.0-0.012); NRBC Pct Auto 0.0 /100WBC (0.0-0.2); Platelet Count 244 X10*3/uL (160-400); Red Blood Count 5.25 X10*6/uL (4.60-5.80); White Blood Count 6.3 X10*3/uL (4.8-10.8)
[2024-12-11 14:56] LABS: Alanine Aminotransferase 35 U/L (0-40); Albumin Level 4.8 g/dL (3.5-5.0); Alkaline Phosphatase 55 U/L (39-117); Anion Gap 11 (12-20); Aspartate Amino Transferase 63 U/L (5-37); Blood Urea Nitrogen 12 mg/dL (9-16); Calcium 9.1 mg/dL (8.4-10.2); Carbon Dioxide 29 mmol/L (22-29); Chloride 105 mmol/L (96-108); Cholesterol 134 mg/dL (<200); Estimated Glomerular Filt Rate > 60; HDL Cholesterol 47 mg/dL (>40); Potassium 4.6 mmol/L (3.3-5.1); Sodium 140 mmol/L (135-145); Total Protein 7.4 g/dL (6.5-8.0); Triglycerides 68 mg/dL (<150)
[2024-12-11 15:17] LABS: Folate 14.2 ng/mL (> or = 4.0); Vitamin B12 249 pg/mL (200-900)
== END 2024-12-11 11:11 | disposition home or self-care (01) ==
LOC: HO.CHCLDS 11:10
PROVIDERS: Visit Provider Family Medicine
DX: E11.65 Type 2 diabetes mellitus with hyperglycemia (principal); E55.9 Vitamin D deficiency, unspecified
CPT/HCPCS: 36415; 80053; 80061; 82306; 82607; 82746; 85025